=== PATIENT | female | born 1955 ===

== ENCOUNTER → 2021-12-15 | Outpatient (CLI) | payer MEDICARE, OTHER, MEDICAID ==
[~2021-12-15] MED LIST: ANTIVERT 25MG25 MG PO; ATIVAN; DIAMOX250 MG PO; LEVOTHYROXINE0.05 MG PO; LORAZEPAM0.5 MG PO; PHENERGAN 25 TA25 MG; PHENERGAN 25 TA25 MG PO; PREMARIN1.25 MG PO; PREVACID SOLUTA30 MG PO; SANCTURA20 MG PO; SAVELLA12.5 MG PO; TYLENOL 500MG500 MG PO; [UNRECOGNIZED DRUG - REMARK]
== END ==
LOC: COL.RAD 09:52
DX: N36.1 Urethral diverticulum (principal)
CPT/HCPCS: A9575